=== PATIENT | male | born 1980 | race Native Hawaiian/Other Pacific Islander ===

== ENCOUNTER 2020-04-28 06:48 | Emergency (ER) | payer OTHER ==
[~2020-04-28] VITALS: Ht 185.4 cm; Wt 113.4 kg
[2020-04-28 07:10] VITALS: TEMP 99.1
[2020-04-28 08:35] VITALS: BP 130/80
== END 2020-04-28 08:35 | disposition home or self-care (01) ==
LOC: ED 06:48
DX: M54.5 Low back pain (principal); G89.29 Other chronic pain; M51.26 Other intervertebral disc displacement, lumbar region; M41.86 Other forms of scoliosis, lumbar region
CPT/HCPCS: 81000; 96372; 99283; J1885

== ENCOUNTER 2022-06-07 17:26 | Emergency (ER) | payer OTHER ==
[~2022-06-07] VITALS: Ht 185.4 cm; Wt 113.4 kg
[2022-06-07 17:35] VITALS: BP 124/70; TEMP 98.6
[2022-06-07 19:15] LABS: POTASSIUM 3.5 mmol/L (3.6-5.2)
[2022-06-07 19:17] LABS: PLATELET COUNT 122 K/uL (142-355)
[2022-06-07] MEDS ORDERED: MONDOXYNE NL100 MG PO (19:44)
== END 2022-06-07 20:15 | disposition home or self-care (01) ==
LOC: ED 17:26
PROVIDERS: Emergency Medicine
DX: L98.8 Other specified disorders of the skin and subcutaneous tissue (principal)
CPT/HCPCS: 36415; 80048; 85027; 85379; 99282